=== PATIENT | female | born 1960 | race African-American/Black ===

== ENCOUNTER → 2019-11-20 | Outpatient (CLI) | payer OTHER ==
[~2019-11-20] MED LIST: ASPIRIN 81M81 MG/TA2 PO; HCTZ 25MG TAB25 MG PO; LANTUS100 U/ML SQ; MULTI VITAMINS1 TAB PO; NEXIUM 40MG40 MG PO; NIACIN 100100 MG/TAB; NOVOLOG 100U100 U/M1 SQ; WATER PILL; ZESTORETIC 25 M1 TAB PO
== END ==
LOC: MC.RAD 08:30
DX: Z12.31 Encounter for screening mammogram for malignant neoplasm of breast (principal)

== ENCOUNTER → 2021-05-24 | Outpatient (CLI) | payer OTHER | LOC: MC.RAD 07:45 | DX: Z12.31 Encounter for screening mammogram for malignant neoplasm of breast (principal); Z98.890 Other specified postprocedural states ==

== ENCOUNTER 2022-06-09 13:19 | Emergency (ER) | payer OTHER ==
[~2022-06-09] VITALS: Ht 160 cm; Wt 106.4 kg
[2022-06-09 13:50] VITALS: BP 174/91; PULSE 91; TEMP 98
== END 2022-06-09 14:30 | disposition home or self-care (01) ==
LOC: COL.ER 13:19
DX: M79.604 Pain in right leg (principal)

== ENCOUNTER → 2024-01-16 | Outpatient (CLI) | payer OTHER | LOC: MC.RAD 13:59 | DX: Z12.31 Encounter for screening mammogram for malignant neoplasm of breast (principal) ==